=== PATIENT | male | born 1960 | race Caucasian/White ===

== ENCOUNTER 2018-07-29 13:14 | Emergency (ER) | payer OTHER ==
[~2018-07-29] VITALS: Ht 167.6 cm; Wt 81.7 kg
[2018-07-29] MEDS ORDERED: ZOCOR20 MG PO (13:23)
[2018-07-29] MEDS ORDERED: MOBIC15 MG PO (15:05)
[2018-07-29] MEDS ORDERED: NORCO 5-325 TA1 EACH PO (15:05)
[2018-07-29] MEDS ORDERED: FLEXERIL PO (15:05)
[2018-07-29 15:30] VITALS: BP 118/80
== END 2018-07-29 15:33 | disposition home or self-care (01) ==
LOC: M.ERS 13:14
DX: M54.5 Low back pain (principal); Z90.79 Acquired absence of other genital organ(s); V49.09XA Driver injured in collision with other motor vehicles in nontraffic accident, initial encounter; Y93.89 Activity, other specified; Y92.89 Other specified places as the place of occurrence of the external cause; Y99.8 Other external cause status